=== PATIENT | female | born 1990 | race Caucasian/White ===

== ENCOUNTER 2020-06-09 13:26 | Emergency (ER) | payer MEDICAID, SELFPAY ==
[2020-06-09 13:27] VITALS: BP 117/67; PULSE 81; RESP 16; TEMP 37; O2SAT 96; BMI 36.6
--- NOTE | 2020-06-09 13:52 | ED.VIS.GEN ---
History of Present Illness Chief Complaint: Back Informant: Patient Narrative: Patient is a 30-year-old previously healthy female who presents to the emerge department for left-sided neck pain. Started this morning upon awaking. She believed that she slept funny on it. He has had this happen many times before in the past. She has gone to urgent cares before who gives her muscle relaxers which helps. She has not tried taking anything for this today. She currently rates the pain as moderate. Movement of the neck especially looking the head backwards makes it worse. She denies any radiation of the pain into her arms. No chest pain or shortness of breath. No headache. No vision changes. No speech difficulties. No fevers or chills. She denies any injury or trauma. Past Medical History - Allergies and Home Meds Allergies/Adverse Reactions: Allergies No Known Allergies Allergy (Verified 06/09/20 13:31) Primary Care Physician: Scott Gonzalez MD [STAFF PHYSICIAN] - 3-5 Days NOT,DEFINED [NON-STAFF] - Prior records reviewed: No Past Medical History: None Smoking Status: Current every day smoker Alcohol: None Drugs: None Review of Systems All systems negative except as indicated General: Denies: Chills, Fever Eyes: Denies: Visual changes - bilaterally ENT: Denies: Bilateral ear pain Cardiovascular: Denies: Chest pain, Palpitations Respiratory: Denies: Dyspnea, Cough Gastrointestinal: Denies: Abdominal pain, Nausea, Vomiting Musculoskeletal: Reports: Neck pain. Denies: Back pain, Swelling, Extremity Pain Skin: Denies: Rash, Wounds Neurological: Denies: Headache, Weakness, Parasthesia, Numbness Physical Exam Vital Signs/Narrative: Vital Signs Temp Pulse Resp BP Pulse Ox 06/09/20 13:27 98.6 F 81 16 117/67 96 Inital Vital Signs reviewed: Yes General: Well nourished, Well developed Head: Normocephalic, Atraumatic, Tenderness Eyes: Perrl, EOMI ENT: Moist mucous membranes Neck: Supple, - - Tender along the left trapezius and left paraspinal musculature. No midline tenderness. No overlying skin changes. Cardiovascular: Regular rate, Regular rhythm Respiratory: No distress, CTA bilaterally Abdomen: Soft, Nontender Back: Nontender. Negative for: Spinal tenderness Extremities: Nontender, - - 5 out of 5 muscle strength in both upper extremities. Neurovascularly intact. Skin: Normal color Neurological: Alert, Oriented x3 Psychological: Normal affect, Normal Mood Diagnostic/Tx/Re-eval - Medical Decision Making Patient presents to the emergency department for nontraumatic left-sided neck pain. She believes that she just slept funny on it. She has had this before in the past. Upon arrival to emerge department vital signs within normal limits. She is tender to palpation. I do believe that this is musculoskeletal. No indication for imaging at this time. We will give a dose of Toradol here in the emergency department and prescribed Flexeril for as needed muscle spasms. She does have a PCP she can follow-up with. Warning signs and symptoms for which to return to the emergency department are reviewed with her. She understands and is agreeable with this plan. ED Disposition - Plan for ED Patient: Disposition: Home or Assisted Living Diagnosis: Neck pain on left side Instructions: ED Neck Back Pain General Prescriptions: cycloBENZAPRine HCl [Flexeril] 10 mg PO TID PRN PRN 3 Days #9 tab PRN Reason: Muscle Spasm Transmission Status: Received by [facility] Referrals: NOT,DEFINED [NON-STAFF] - Scott Gonzalez MD [STAFF PHYSICIAN] - 3-5 Days
[2020-06-09] MEDS: Ketorolac 30 MG/ML Syringe IM (14:05)
[2020-06-09 14:23] VITALS: RESP 16
--- NOTE | 2020-06-09 14:24 | ED.RN ---
REVIEWED D/C INSTRUCTIONS, FOLLOW UP CARE, PRESCRIPTION, AND S/S THAT WOULD WARRANT A RETURN TO THE ED WITH PT. PT VERBALIZED AN UNDERSTANDING AND DENIES FURTHER QUESTIONS FOR THIS RN. PT SKIN P/W/D, RESP EVEN AND UNLABORED, PT A&O X 3, NO DISTRESS NOTED. PT AMBULATED OUT OF ED, GAIT STEADY.
== END 2020-06-09 14:25 | disposition home or self-care (01) ==
LOC: ED 14:12
PROVIDERS: Emergency Provider Emergency Medicine
DX: M54.2 Cervicalgia (principal); F17.200 Nicotine dependence, unspecified, uncomplicated
CPT/HCPCS: 96372; 99282

== ENCOUNTER 2020-06-25 20:38 | Emergency (ER) | payer MEDICAID, SELFPAY ==
[2020-06-25 20:39] VITALS: BP 137/77; PULSE 88; RESP 16; TEMP 36.9; O2SAT 99; BMI 35.6
[2020-06-25] MEDS: Benzonatate 100 MG Capsule PO (21:21)
--- NOTE | 2020-06-25 21:37 | RAD_ITS ---
HISTORY: COUGH AND FEVER ADDITIONAL HISTORY: None provided. EXAMINATION/TECHNIQUE: XR Chest 1 View AP/PA Number of images including paperwork: 1 COMPARISON: None FINDINGS: LUNGS AND PLEURA: No consolidation, mass or pleural effusion. CARDIAC SILHOUETTE: Unremarkable. MEDIASTINUM AND SUKI: Unremarkable. UPPER ABDOMEN: Unremarkable. SKELETON AND SOFT TISSUES: No acute skeletal findings. OTHER DEVICES AND HARDWARE: None. RAD/Chest 1 View (Portable) IMPRESSION: No acute cardiopulmonary abnormality. at 2207 Reported and signed by: Kristie Jhaveri MD Electronically Signed: Kristie Jhaveri MD at 22:07 EDT Tel , Service support ,
--- NOTE | 2020-06-25 22:15 | ED.VISSUMM ---
- ER Visit Summary Date of Service: 06/25/20 Chief Complaint: Fever and cough History of Present Illness: The patient is a 30 F with a fever and cough for the past 3 days. Associated with nausea and diarrhea. Patient has a history of asthma and is a smoker. She was exposed to a child who attends daycare. No heart disease history. No history of blood clots. No history of liver or renal disease. No history of immune suppression or cancer. Physical Examination: Afebrile and vital signs are unremarkable. Alert and oriented. No acute distress. Heart regular. Lungs clear. Skin appears normal. Test Results: Chest x-ray showed nothing acute. COVID-19 testing is pending. Emergency Department Course and Treatment: Patient has viral symptoms. Unremarkable exam. Negative x-ray. This could be an upper respiratory infection including COVID-19. Patient was tested. Results are pending. She was advised to maintain social distancing and other precautions. Follow-up with results. Return for any new or worsening issues. Treatment Plan: As above Disposition: Discharged Impression: Cough, COVID-19 suspected This note was generated with [employer] dictation software. It may contain incorrect words, spelling, and punctuation that were not noted in review of the chart prior to signing ED Disposition - Plan for ED Patient: Referrals: Care Physician,No Primary [Primary Care Provider] -
--- NOTE | 2020-06-25 22:17 | ED.DEP ---
ED Disposition - Plan for ED Patient: Instructions: ED Viral Syndrome Prescriptions: Benzonatate [Tessalon Perle] 100 mg PO 4X/DAY PRN PRN #20 cap PRN Reason: Cough Prescription Printed Referrals: Vivienne Rosas [NON-STAFF] -
[2020-06-25 22:41] VITALS: PULSE 76; RESP 16; O2SAT 98
== END 2020-06-25 22:41 | disposition home or self-care (01) ==
LOC: ED 21:23
PROVIDERS: Emergency Provider Emergency Medicine
DX: R05 Cough (principal)
CPT/HCPCS: 71045; 87635; 94799; 99283; U0003

== ENCOUNTER 2020-08-29 18:56 | Emergency (ER) | payer MEDICAID, SELFPAY ==
[2020-08-29 18:57] VITALS: BP 134/82; PULSE 89; RESP 16; TEMP 36; O2SAT 99; BMI 33.6
--- NOTE | 2020-08-29 19:24 | ED.DCSUM_ITS ---
- ER Visit Summary Date of Service: 08/29/20 Chief Complaint: Sore throat and cough History of Present Illness: The patient is a 30 F who presents with sore throat and cough that has been getting worse over the past 2 days. Patient states she is coughing up some white sputum. Patient states she feels warm at times but has not taken her temperature. Patient denies any rhinorrhea. Patient does admit to some shortness of breath. Patient also states she has pain in her chest when she coughs. Patient admits to nausea but denies any vomiting. Physical Examination: Vital signs are stable. Patient is afebrile. Patient is in no acute distress. Oromucosa is pink and moist. Oropharynx shows some postnasal drainage and mild erythema. There are no exudates noted. Neck is supple. Trachea is midline. There is no JVD or lymphadenopathy. Heart was regular rate and rhythm. Lungs showed a few scattered wheezes. There is good respiratory effort noted. Abdomen is soft. Bowel sounds are normal. There is no tenderness. Cranial nerves II through XII are intact. There are no focal motor or sensory deficits noted. Test Results: Rapid strep test was obtained and was negative. Portable chest x- ray was obtained. There is no acute cardiopulmonary process. This was interpreted by the radiologist and reviewed by myself. Emergency Department Course and Treatment: Patient was given a DuoNeb aerosol here. Patient was feeling better on reevaluation. Patient was given a primary care physician for follow-up care in 5 to 7 days. Patient understood and was agreeable with the plan. All questions were answered. Disposition: Discharge home Impression: Viral upper respiratory infection This note was generated with [employer] dictation software. It may contain incorrect words, spelling, and punctuation that were not noted in review of the chart prior to signing ED Disposition - Plan for ED Patient: Disposition: Home or Assisted Living Diagnosis: Viral upper respiratory infection Instructions: ED VIRAL URI w/ Wheezing Adult Referrals: Nathan Juárez III, MD [STAFF PHYSICIAN] -
[2020-08-29] MEDS: Ipratropium/Albuterol Sulfate 3 ML AMPUL.NEB INHALATION (19:29)
--- NOTE | 2020-08-29 19:50 | RAD_ITS ---
STUDY: X-RAY CHEST REASON FOR EXAM: Female, 30 years old. COUGH AND SORE THROAT STARTING TODAY TECHNIQUE: Single frontal view of the chest. COMPARISON: 06/25/2020 FINDINGS: Cardiac silhouette unremarkable. Pulmonary vascularity unremarkable. Aorta unremarkable. No focal airspace opacities. No pleural effusions. Upper abdomen unremarkable. Osseous structures intact. No pneumothorax. RAD/Chest 1 View (Portable) IMPRESSION: No acute cardiopulmonary process identified. Electronically Signed: John Blanco, at 21:21 EDT Tel , Service support ,
[2020-08-29 21:39] VITALS: BP 122/71; PULSE 70; RESP 18; O2SAT 99
== END 2020-08-29 21:40 | disposition home or self-care (01) ==
PROVIDERS: Emergency Provider Emergency Medicine
DX: J06.9 Acute upper respiratory infection, unspecified (principal); J45.909 Unspecified asthma, uncomplicated; Z72.0 Tobacco use
CPT/HCPCS: 71045; 87880; 94640; 99282